=== PATIENT | female | born 1995 | race Two or more races ===

== ENCOUNTER 2018-05-01 20:16 | Emergency (ER) | payer MEDICAID ==
[~2018-05-01] VITALS: Ht 167.6 cm; Wt 77.1 kg
[2018-05-01 20:34] VITALS: BP 129/83
== END 2018-05-01 21:15 | disposition home or self-care (01) ==
LOC: ER 20:16
DX: J06.9 Acute upper respiratory infection, unspecified (principal)

== ENCOUNTER 2018-08-11 19:18 | Emergency (ER) | payer MEDICAID, OTHER ==
[~2018-08-11] VITALS: Ht 167.6 cm; Wt 77.1 kg
[2018-08-11 21:42] LABS: Hepatitis B Surface Antibody Positive
[2018-08-11] MEDS ORDERED: SULFAMETHOX W/TRIMETH(800/160MG) DS TAB PO ONE (21:45)
[2018-08-11] MEDS ORDERED: cefTRIAXone SOD 1,000 MG VL IM ONE (21:45)
[2018-08-11 21:54] LABS: Hepatitis B Surface Antigen Negative (Negative)
[2018-08-11 22:51] VITALS: BP 135/85
== END 2018-08-11 22:56 | disposition home or self-care (01) ==
LOC: ER 19:23
DX: Z77.22 Contact with and (suspected) exposure to environmental tobacco smoke (acute) (chronic) (principal)
CPT/HCPCS: 36415; 86703; 86706; 86803; 87340; 96372; 99283; J0696